=== PATIENT | female | born 1990 | race African-American/Black ===

== ENCOUNTER 2017-04-28 11:57 | Emergency (ER) | payer OTHER ==
[2017-04-28 12:16] VITALS: BP 159/82; BMI 39.3
[2017-04-28 13:24] LABS: BILIRUBIN,URINE NEGATIVE (NEGATIVE); BLOOD/HEMOGLOBIN,URINE NEGATIVE (NEGATIVE); GLUCOSE, URINE NEGATIVE (NEGATIVE); KETONES,URINE NEGATIVE (NEGATIVE); LEUKOCYTE ESTERASE ,URINE NEGATIVE (NEGATIVE); NITRITES,URINE NEGATIVE (NEGATIVE); PROTEIN,URINE NEGATIVE (NEGATIVE); UROBILINOGEN,URINE NORMAL (NORMAL)
[2017-04-28 13:38] LABS: APPEARANCE,URINE HAZY (CLEAR); COLOR,URINE YELLOW (YELLOW); RBC,URINE RARE /HPF (NEGATIVE)
[2017-04-28 13:39] LABS: AMORPHOUS SEDIMENT,UR 2+ /HPF (NEGATIVE); BACTERIA,URINE TRACE /HPF (NEGATIVE); SQUAMOUS EPITHELIAL CELL,UR MANY /HPF (NEGATIVE)
--- NOTE | 2017-04-28 13:56 | DR.PREG ---
HPI - Time seen Time seen: 13:55 - PCP Primary Care Physician: AUSTEN GALE - HPI Comment HPI Comment: PATIENT SEEN BY OB AND DISCHARGE SHE IS NOT IN ACTIVE LABOR. SEEN IN ED NOW FOR TOOTHACHE AND CONGESTION. STARTED YESTERDAY. NO FEVER. TYLENOL DID NOT RELIVE HER PAIN. MOLARS BOTH UPPER AND LOWER ARE HURTING. - Chief Complaint Chief Complaint Doctors Comments: TOOTHACHE, CONGESTION TIMES ONE DAY. Chief Complaint:: PT STATES " I HAVE BEEN HAVING CONTRACTIONS FOR THE PAST FEW DAYS" PT DENIES ANY BLEEDING , LEAKING OF FLUIDS OR TROUBLE VOIDING.. Self Treatment fo Chief Complaint: PTS DUE DATE IS 05/31/17 PT STATES " I AM 32 WEEKS ,,,, - Source History Provided: Patient - Mode of Arrival Mode of Arrival: Ambulatory - Context Complains of: Contractions History of: None : 2 Para: 1 Care: Yes - Location Location: pain: Diffuse - Quality Pain: Cramping Vaginal fluid leakage color: None - Timing Onset of Chief Complaint: 04/24/17 Came on: Suddenly Pain: Resolved Pain: Irregular - Duration Pain Strength: Moderate - Severity Vaginal Leakage: None - Associated Signs & Symptoms Asociated signs & symptoms: None PMH - PMH Past Medical History: No Past Surgical History: Yes Past Surgical History Comment: .. - Family History History of Family Medical Conditions: No - Social History Does patient currently use any type of tobacco product: No Have you used tobacco products in the last 12 months: No Type of Tobacco Use: None Does any household member use tobacco: No Alcohol Use: None Do you use any recreational Drugs:: No Lives With: Family Lives Where: Home - infectious screening In the last 2 months have you had wt loss of >10#?: NO Have you had fever, night sweats or hemotysis?: No Have you traveled outside the country in the last 6 months?: No Isolation: Standard ROS - Review of Systems Constitutional: No Symptoms Reported Eyes: No Symptoms Reported ENTM: Mouth Pain (TOOTHACHE) Respiratoy: No Symptoms Reported Cardiovascular: No Symptoms Reported Gastrointestinal/Abdominal: Abdominal Pain Genitourinary: No Symptoms Reported Neurological: No Symptoms Reported Musculoskeletal: No Symptoms Reported Integumentary: No Symptoms Reported Hematologic/Lymphatic: No Symptoms Reported Endocrine: No Symptoms Reported All Other Systems: Reviewed and Negative PE - Vital Signs Vitals: Temperature 98.2 F Pulse Rate 89 Respiratory Rate 22 Blood Pressure 159/82 O2 Sat by Pulse Oximetry 100 - General Limitations: No Limitations General Appearance: Alert - Head Head Exam: Normal Inspection - Eyes Eye exam: Normal Appearance - ENT ENT Exam: Normal Exam (OVER MOLARS INLAME.), Other - Neck Neck Exam: Trachea Midline - Chest Chest Inspection: Symmetric Chest Wall Rise - Respiratory Respiratory Exam: Normal Lung Sounds Bilat Respiratory Exam: Bilateral Clear to Auscultation - Cardiovascular Cardiovascular Exam: Regular Rate, Normal Rhythm, Normal Heart Sounds - Abdominal Exam Abdominal Exam: Normal Inspection, Normal Bowel Sounds. negative: Distention - Back Back Exam: Normal Inspection - Extremeties Extremities Exam: Normal Inspection - Neurologic Neurological Exam: Alert, Oriented X3 - Psychiatric Psychiatric Exam: Anxious MDM - Differential Diagnosis Differential Diagnosis Comment: TOOTHACHE, GINGIVITIS, URI Course - Treatment Treatment: SEE ORDERS. PATIENT SEEN AND EVALUATED BY OB IN ED. - Education/Counseling Education/Counseling: Patient, Education Educated On: Diagnosis, Needs for Follow Up ROR - Labs Reviewed Laboratory: Specimen Type Clean catch urine 04/28/17 13:15 Urine Color Yellow (YELLOW) 04/28/17 13:15 Urine Appearance Hazy (CLEAR) 04/28/17 13:15 Urine pH 8.0 (5.0 - 8.0) 04/28/17 13:15 Ur Specific [place] 1.015 (1.000-1.030) 04/28/17 13:15 Urine Protein Negative (NEGATIVE) 04/28/17 13:15 Urine Glucose (UA) Negative (NEGATIVE) 04/28/17 13:15 Urine Ketones Negative (NEGATIVE) 04/28/17 13:15 Urine Occult Blood Negative (NEGATIVE) 04/28/17 13:15 Urine Nitrite Negative (NEGATIVE) 04/28/17 13:15 Urine Bilirubin Negative (NEGATIVE) 04/28/17 13:15 Urine Urobilinogen Normal (NORMAL) 04/28/17 13:15 Ur Leukocyte Esterase Negative (NEGATIVE) 04/28/17 13:15 Urine RBC Rare /HPF (NEGATIVE) 04/28/17 13:15 Urine WBC Rare /HPF (NEGATIVE) 04/28/17 13:15 Ur Squamous Epith Cells Many /HPF (NEGATIVE) 04/28/17 13:15 Amorphous Sediment 2+ /HPF (NEGATIVE) 04/28/17 13:15 Urine Bacteria Trace /HPF (NEGATIVE) 04/28/17 13:15 Ur Culture Indicated? No/not indicated 04/28/17 13:15 - Diagnosis Discharge Problem: Toothache, Gingivitis - Discharge Plan Disposition: 01 HOME, SELF-CARE Condition: Stable Prescriptions: Acetaminophen W/ Codeine [Tylenol/Codeine #3 300-30 mg] 1 tab PO Q4-6H PRN #12 tab PRN Reason: Pain Amoxicillin [Amoxil 875 mg] 875 mg PO BID #14 tab - Follow ups/Referrals Follow ups/Referrals: Cory Madison [Primary Care Provider] - 3 days - Instructions Instructions: Dental Pain, Gingivitis, [id number] Additional Instructions: RETURN TO ED IF WORSE. FOLLOW UP WITH OB INSTRUCTED. YOU WERE EVALUTED BY OB WHILE IN ED FOR YOUR YOUR REPORT OF CONTRACTIONS.
== END 2017-04-28 14:23 | disposition home or self-care (01) ==
LOC: ER 12:21
DX: K05.10 Chronic gingivitis, plaque induced (principal); K08.89 Other specified disorders of teeth and supporting structures; Z3A.34 34 weeks gestation of pregnancy
CPT/HCPCS: 81001; 99283; 99284